=== PATIENT | female | born 2000 | race Caucasian/White ===

== ENCOUNTER 2024-08-04 16:26 | Emergency (ER) | payer MEDICAID ==
[~2024-08-04] VITALS: Ht 162.6 cm; Wt 65.0 kg
[2024-08-04 16:31] VITALS: BP 142/80; PULSE 98; RESP 16; TEMP 98.3; O2SAT 99
[2024-08-04] MEDS ORDERED: IBUP-864 PO (16:43)
[2024-08-04] MEDS ORDERED: AMOX-100 PO (16:43)
--- NOTE | 2024-08-04 16:44 | Physician Documentation ---
HPI ~ General Chief Complaint: Tooth Problem Stated Complaint: "I THINK I HAVE AN INFECTION IN MY MOUTH" Source: patient Mode of Arrival: POV Exam Limitations: no limitations History of Present Illness HPI Comment 24-year-old female way dental pain impacted wisdom teeth and some slight swelling to the mandibular region on the right side. No difficulty breathing or swallowing Medication Reconciliation Allergies: Coded Allergies: No Known Allergies (Unverified , 08/04/24) Past Medical History Past Medical History: No Pertinent History Review of Systems All Other Systems at this time: Reviewed and Negative ENT: Reports: see HPI Physical Exam Vital Signs: RN Vital Signs have been reviewed: Yes, Temperature: 98.3, Source: Temporal, Heart Rate: 98, Respiratory Rate: 16, BP: 142/80, Pulse Oximetry: 99, Weight: 65.000 Oxygen Flow Rate: 0 General Appearance: alert, WD/WN, no apparent distress EENT General: moist mucous membranes Palate: normal inspection Teeth/Gums: carious, tender, gingiva redness Face: swelling Face Mild right cheek swelling Head: normal inspection Neck: non-tender, supple, trachea midline; No: lymphadenopathy (R), lymphadenopathy (L) Respiratory: lungs clear Chest: no accessory muscle use Progress Results/Orders Results/Orders Vital Signs 08/04/24 16:31 Temp 98.3 Pulse 98 Resp 16 B/P (MAP) 142/80 Pulse Ox 99 O2 Flow Rate 0 Medical Decision Making Findings Patient with wisdom teeth that do look impacted to the lower jaw. Some redness and cheek swelling no obvious fluctuant indicate any dental abscess. Antibiotics and encouraging dental infection Departure Time of Disposition: 16:41 Disposition: 01 HOME / SELF CARE / HOMELESS Impression: Primary Impression: Toothache Additional Impression: Disturbances in tooth eruption Condition: Stable Discharge Instructions: Dental Pain Additional Instructions: Dental appointment needed as discussed during triage. Take antibiotics as prescribed use Tylenol and ibuprofen for [id number] pain as needed Referrals: NO PRIMARY CARE PROVIDER (PCP) Prescriptions Ibuprofen (Ibu) 800 Mg Tablet 1 TAB PO Q8H for 7 Days, #21 TAB 0 Refills Prov: ERA BALL SURGICAL RESIDENT 08/04/24 Amoxicillin Trihydrate (Amoxicillin) 500 Mg Capsule 1 CAP PO Q12H for 10 Days, #20 CAP Prov: ERA BALL SURGICAL RESIDENT 08/04/24 Education Educated: Patient Educated regarding: diagnosis, treatment, need for follow up Signature Scribe Signature: The note accurately reflects work and decisions made by me.Era SINGH 08/04/24 16:44 Attestation: The note accurately reflects work and decisions made by me.Era SINGH 08/04/24 16:44 ERA BALL NP Aug 04, 2024 16:44
[2024-08-04] MEDS: ibuprofen tablet 400 MG TABLET PO ONE (17:04)
[2024-08-04] MEDS: amoxicillin 250mg capsule PO ONE (17:04)
== END 2024-08-04 17:12 | disposition home or self-care (01) ==
LOC: ER 16:27
DX: K08.89 Other specified disorders of teeth and supporting structures (principal); K00.6 Disturbances in tooth eruption
CPT/HCPCS: 99283